=== PATIENT | male | born 1985 | race African-American/Black ===

== ENCOUNTER 2018-07-18 23:10 | Emergency (ER) | payer SELFPAY ==
[~2018-07-18] VITALS: Ht 175.3 cm; Wt 96.2 kg
[2018-07-18] MEDS ORDERED: HYDR50CA2 PO (23:38)
[2018-07-18] MEDS ORDERED: CITRAZINE (23:38)
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
[2018-07-19] MEDS ORDERED: HYDROcodone/APAP 5/325MG 1 TAB TABLET PO ONE (01:15)
[2018-07-19] MEDS ORDERED: HYDR-971 PO (01:41)
[2018-07-19 02:15] VITALS: BP 131/84
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
== END 2018-07-19 02:55 | disposition home or self-care (01) ==
LOC: ER 23:10
DX: M25.531 Pain in right wrist (principal); M25.561 Pain in right knee; F41.9 Anxiety disorder, unspecified; F31.9 Bipolar disorder, unspecified; V09.20XA Pedestrian injured in traffic accident involving unspecified motor vehicles, initial encounter; Y93.89 Activity, other specified; Y92.89 Other specified places as the place of occurrence of the external cause; Y99.8 Other external cause status
CPT/HCPCS: 29125; 73110; 73564; 99284

== ENCOUNTER 2019-04-08 15:45 | Emergency (ER) | payer SELFPAY ==
[~2019-04-08] VITALS: Ht 175.3 cm; Wt 86.2 kg
[~2019-04-08 15:45] MED LIST: CITRAZINE; HYDR-3165 PO; HYDR50CA2 PO
[2019-04-08] MEDS ORDERED: KETOROLAC 60 MG/2 ML VIAL. IM ONE ×2 (16:15→16:45)
[2019-04-08] MEDS ORDERED: IV NORMAL SALINE 1,000ML 1,000 ML IV ONE (16:15)
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
[2019-04-08 16:42] LABS: BASO # 0.1 x10^3/uL (0.0-0.2); BASO % 1 % (0-3); EOS # 0.3 x10^3/uL (0.0-0.7); EOS % 4 % (0-3); HEMOGLOBIN 17.7 g/dL (13.0-17.5); LYMPH # 1.7 x10^3/uL (1.0-4.8); LYMPH % 27 % (24-48); MEAN CORPUSCULAR HEMOGLOBIN 28 pg (25-35); MEAN CORPUSCULAR HGB CONC 34 g/dL (31-37); MEAN CORPUSCULAR VOLUME 81 fL (79-100); MONO # 0.5 x10^3/uL (0.0-1.1); MONO % 7 % (0-9); NEUT # 3.7 x10^3uL (1.8-7.7); NEUT % 61 % (31-73); PLATELET COUNT 356 x10^3/uL (140-400); RED BLOOD COUNT 6.43 x10^6/uL (4.30-5.70); WHITE BLOOD COUNT 6.2 x10^3/uL (4.0-11.0)
[2019-04-08 16:56] LABS: ALBUMIN 3.9 g/dL (3.4-5.0); ALBUMIN/GLOBULIN RATIO 0.9 (1.0-1.7); CALCIUM 9.4 mg/dL (8.5-10.1); CREATININE 1.3 mg/dL (0.7-1.3); GFR 76.5; TOTAL BILIRUBIN 0.9 mg/dL (0.2-1.0); TOTAL PROTEIN 8.2 g/dL (6.4-8.2)
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
[2019-04-08 17:25] VITALS: BP 124/97
== END 2019-04-08 17:36 | disposition home or self-care (01) ==
LOC: ER 15:45
DX: M79.672 Pain in left foot (principal); M79.671 Pain in right foot; R07.89 Other chest pain; L98.8 Other specified disorders of the skin and subcutaneous tissue; M25.572 Pain in left ankle and joints of left foot; F41.9 Anxiety disorder, unspecified; F31.9 Bipolar disorder, unspecified; V89.2XXA Person injured in unspecified motor-vehicle accident, traffic, initial encounter; Y93.89 Activity, other specified; Y92.89 Other specified places as the place of occurrence of the external cause; Y99.8 Other external cause status
CPT/HCPCS: 36415; 71111; 73610; 80053; 83690; 85025; 96372; 99285; J1885; J7030